=== PATIENT | female | born 1990 | race Two or more races ===

== ENCOUNTER 2024-05-20 14:30 | Inpatient (IN) | payer OTHER ==
[~2024-05-20 14:30] MED LIST: Bupivacaine 0.25% 10 ML SDV ONE; Sodium Chloride 0.9% 10 ML SDV ONE
[2024-05-20] MEDS ORDERED: Lidocaine 1% 50 ML MDV INJECT PRN (14:59)
[2024-05-20] MEDS ORDERED: Acetaminophen 325 MG Tab PO PRN (14:59)
[2024-05-20] MEDS ORDERED: Nalbuphine 10 MG/ML Syringe IVPUSH PRN (14:59)
[2024-05-20] MEDS ORDERED: Ondansetron 4 MG/2 ML SDV IVPUSH PRN (14:59)
[2024-05-20] MEDS ORDERED: Oxytocin/Lactated Ringers 30 UNIT/500 ML BAG IV SCH (15:00)
[2024-05-20 15:17] LABS: BASOPHILS PERCENT AUTO 0.2 % (0.0-1.0); EOSINOPHILS PERCENT AUTO 0.2 % (0.0-6.0); HEMATOCRIT 41.7 % (37.0-47.0); IMMATURE GRAN ABSOLUTE AUTO 0.11 K/mm3 (0.00-0.05); IMMATURE GRAN PERCENT AUTO 0.6 % (0.0-0.4); LYMPHOCYTES ABSOLUTE AUTO 1.4 K/mm3 (1.0-4.8); LYMPHOCYTES PERCENT AUTO 8.3 % (24.0-44.0); MEAN CORPUSCULAR HEMOGLOBIN 28.9 pg (28.0-32.0); MEAN CORPUSCULAR HGB CONC 33.6 g/dl (32.0-36.0); MEAN CORPUSCULAR VOLUME 86.2 fl (83.0-99.0); MEAN PLATELET VOLUME 12.8 fl (9.4-12.3); MONOCYTES ABSOLUTE AUTO 0.8 K/mm3 (0.0-0.8); MONOCYTES PERCENT AUTO 4.9 % (0.0-8.0); NEUTROPHILS ABSOLUTE AUTO 14.7 K/mm3 (1.8-7.7); NEUTROPHILS PERCENT AUTO 85.8 % (41.0-71.0); PLATELET COUNT,PLT 164 K/mm3 (150-400); RED BLOOD CELL COUNT 4.84 M/mm3 (4.10-5.30); WHITE BLOOD CELL COUNT,WBC 17.16 K/mm3 (3.9-11.3)
[2024-05-20] MEDS: Lactated Ringers 1,000 ML IV SCH (15:37)
[2024-05-20] MEDS ORDERED: diphenhydrAMINE 50 MG/ML SDV IVPUSH PRN (16:08)
[2024-05-20] MEDS ORDERED: ePHEDrine 50 MG/ML SDV IVPUSH PRN (16:08)
[2024-05-20] MEDS: Bupivacaine/fentaNYL/NS 100 ML Bag EPIDUR PRN (16:18)
[2024-05-20] MEDS: fentaNYL 100 MCG/2 ML SDV EPIDUR PRN (16:19)
[2024-05-20 17:16] LABS: C. TRACHOMATIS BY PCR NOT DETECTED; N. GONORRHOEAE BY PCR NOT DETECTED
[2024-05-20] MEDS: Oxytocin/Lactated Ringers 30 UNIT/500 ML BAG IV SCH (19:10)
[2024-05-21] MEDS: Calcium Carbonate 500 MG Tab.Chew PO PRN (03:52)
[2024-05-21] MEDS ORDERED: Hydrocortisone Acetate 25 MG Supp RECTAL PRN (04:51)
[2024-05-21] MEDS ORDERED: Docusate Sodium 100 MG Cap PO PRN (04:51)
[2024-05-21] MEDS ORDERED: Magnesium Hydroxide 400 MG/5 ML Susp 30 ML Cup PO PRN (04:51)
[2024-05-21] MEDS ORDERED: Oxytocin/Lactated Ringers 30 UNIT/500 ML BAG IV SCH (04:51)
[2024-05-21] MEDS ORDERED: Simethicone 80 MG Tab.Chew PO PRN (04:51)
[2024-05-21] MEDS: Benzocaine/Menthol 20%-0.5% Spray 78 GM Cannister TOP PRN (05:55)
[2024-05-21] MEDS: Witch Hazel Medicated Pads 40/Jar TOP PRN (05:55)
[2024-05-21] MEDS: Ibuprofen 600 MG Tab PO SCH (06:13)
[2024-05-21] MEDS: Acetaminophen 325 MG Tab PO PRN (08:39)
[2024-05-21] MEDS: Prenatal Multivitamin with Calcium/Folic Acid/Iron Tab PO SCH (08:40)
== END 2024-05-22 14:48 | disposition home or self-care (01) | DRG 807 ==
LOC: JD.OBCHECK 14:30 → JD.OB 14:33 → JD.OBCHECK 14:59 → JD.OB 15:05 → OBSVTOIN 05-21 03:15 → JD.OB 05-21 03:16
PROVIDERS: ADMIT Obstetrics & Gynecology; ATTEND Obstetrics & Gynecology
PROC: 10E0XZZ Delivery of Products of Conception, External Approach (ICD-10-PCS; principal; 2024-05-21)
PROC: 0KQM0ZZ Repair Perineum Muscle, Open Approach (ICD-10-PCS; 2024-05-21)
PROC: 10907ZC Drainage of Amniotic Fluid, Therapeutic from Products of Conception, Via Natural or Artificial Opening (ICD-10-PCS; 2024-05-21)
PROC: 3E0R3BZ Introduction of Anesthetic Agent into Spinal Canal, Percutaneous Approach (ICD-10-PCS; 2024-05-21)
PROC: 00HU33Z Insertion of Infusion Device into Spinal Canal, Percutaneous Approach (ICD-10-PCS; 2024-05-21)
PROC: 3E0334Z Introduction of Serum, Toxoid and Vaccine into Peripheral Vein, Percutaneous Approach (ICD-10-PCS; 2024-05-21)
DX: O67.9 Intrapartum hemorrhage, unspecified (principal); Z37.0 Single live birth; Z3A.38 38 weeks gestation of pregnancy; Z60.3 Acculturation difficulty; O77.0 Labor and delivery complicated by meconium in amniotic fluid; O69.81X0 Labor and delivery complicated by cord around neck, without compression, not applicable or unspecified; O70.1 Second degree perineal laceration during delivery; O26.893 Other specified pregnancy related conditions, third trimester; Z67.31 Type AB blood, Rh negative
CPT/HCPCS: 36415; 36430; 51702; 59025; 59409; 85025; 85461; 86592; 86850; 86900; 86901; 87491; 87591; A9270-GY; J0665; J2790; J3010; J3490; J7120; J7999